=== PATIENT | male | born 1950 ===

== ENCOUNTER → 2021-03-11 | Outpatient (CLI) | payer MEDICARE, OTHER ==
[2021-03-11 13:39] LABS: HCT 44.1 % (39.0-53.0); HGB 15.4 gm/dL (13.0-17.5); MCH 31.4 pg (25.0-35.0); MCV 89.6 fL (80.0-100.0); Mean Platelet Volume 7.8; Platelet Count 203 k/uL (150-450); RBC 4.92 m/uL (4.30-5.90); RDW 13.6 % (11.5-15.5); WBC 5.8 k/uL (3.8-10.6)
[2021-03-11 13:43] LABS: INR 0.9 (<1.2); Partial Thromboplastin Time 25.5 sec (22.0-30.0); Prothrombin Time 10.2 sec (9.0-12.0)
[2021-03-11 14:05] LABS: Appearance,Urine Clear (Clear); Bilirubin,Urine Negative (Negative); Blood,Urine Negative (Negative); Color,Urine Light Yellow; Glucose,Urine (UA) Negative (Negative); Ketones,Urine Negative (Negative); Leukocyte Esterase,Urine Negative (Negative); Nitrite,Urine Negative (Negative); Protein,Urine Negative (Negative); Specific Gravity,Urine 1.008 (1.001-1.035); Urobilinogen,Urine <2.0 mg/dL (<2.0)
[2021-03-11 14:10] LABS: ALT 21 U/L (4-49); AST 25 U/L (17-59); African American GFR (CKD) >90 (>60 ml/min/1.73 sqM); Albumin 4.7 g/dL (3.5-5.0); Alkaline Phosphatase 81 U/L (38-126); Anion Gap 9 mmol/L; Blood Urea Nitrogen 14 mg/dL (9-20); Calcium 10.1 mg/dL (8.4-10.2); Carbon Dioxide 25 mmol/L (22-30); Chloride 104 mmol/L (98-107); Glucose 102 mg/dL (74-99); Non-African American GFR(CKD) >90 (>60 ml/min/1.73 sqM); Potassium 4.5 mmol/L (3.5-5.1); Sodium 138 mmol/L (137-145); Total Bilirubin 1.2 mg/dL (0.2-1.3); Total Protein 7.6 g/dL (6.3-8.2)
== END | disposition home or self-care (01) ==
LOC: LABPAT 11:33
PROVIDERS: ATTEND Orthopaedic Surgery
DX: Z01.812 Encounter for preprocedural laboratory examination (principal); Z79.01 Long term (current) use of anticoagulants
CPT/HCPCS: 36415; 80053; 81003; 85027; 85610; 85730; 87070

== ENCOUNTER 2021-03-19 07:49 | Day surgery (SDC) | payer MEDICARE, OTHER ==
[2021-03-15 09:37] VITALS: BMI 30.4
[~2021-03-19 07:49] MED LIST: ACETAMINOPHEN TAB 500 MG TAB PO PRN; DEXAMETHASONE SOD PHOSPHATE 4 MG/ML 1 ML VIAL IV ONE; GABAPENTIN 300 MG CAP PO PRN; HYDROmorphone 0.5 MG/0.5 ML SYRINGE IVP PRN; MELOXICAM 7.5 MG TAB PO PRN; MIDAZOLAM 2 MG/2 ML VIAL IV PRN; ONDANSETRON 4 MG/2 ML VIAL IVP ONE; TRANEXAMIC ACID 1,000 MG in SODIUM CHLORIDE 0.9% 100 ML IVPB PRN
[2021-03-19] MEDS: LACTATED RINGERS 1,000 ML IV SCH (08:01)
[2021-03-19] MEDS ORDERED: ONDANSETRON 4 MG/2 ML VIAL IVP PRN (08:07)
[2021-03-19] MEDS ORDERED: MAGNESIUM HYDROXIDE 2,400 MG/10 ML CUP PO PRN (08:07)
[2021-03-19] MEDS ORDERED: NALOXONE 0.4 MG/ML 1 ML VIAL IV PRN (08:07)
[2021-03-19] MEDS ORDERED: HYDROmorphone 0.5 MG/0.5 ML SYRINGE IVP PRN ×2 (08:07)
[2021-03-19] MEDS ORDERED: HYDROmorphone 0.2 MG/1 ML SYRINGE IVP PRN (08:07)
[2021-03-19] MEDS ORDERED: hydrOXYzine pamoate 25 MG CAP PO PRN (08:07)
[2021-03-19] MEDS ORDERED: HYDROcodone/APAP 7.5-325MG 1 EACH TAB PO PRN ×2 (08:09)
[2021-03-19] MEDS ORDERED: LIDOCAINE 1% (10MG/ML) FOR IV START INTRADERMA ONE (08:45)
[2021-03-19] MEDS ORDERED: ceFAZolin 1,000 MG in SODIUM CHLORIDE 0.9% 1,000 ML IRRIGATION ONE (09:09)
[2021-03-19] MEDS ORDERED: PROPOFOL 10 MG/ML 20 ML VIAL IV ONE (09:10)
[2021-03-19] MEDS ORDERED: fentaNYL (PF) 50 MCG/ML 2 ML AMP ONE (09:10)
[2021-03-19] MEDS ORDERED: TRANEXAMIC ACID 1,000 MG/10 ML VIAL ONE (09:10)
[2021-03-19] MEDS ORDERED: SODIUM CHLORIDE 0.9% IRRIG 1,000 ML BTL IRRIGATION ONE (09:10)
[2021-03-19] MEDS ORDERED: KETAMINE 10 MG/ML 20 ML VIAL ONE (09:10)
[2021-03-19] MEDS ORDERED: SODIUM CHLORIDE 0.9% 100 ML BAG ONE (09:10)
[2021-03-19] MEDS ORDERED: HEPARIN SODIUM,PORCINE 10,000 UNIT/ML 1 ML VIAL ONE (09:10)
[2021-03-19] MEDS ORDERED: MIDAZOLAM 2 MG/2 ML VIAL ONE (09:10)
[2021-03-19] MEDS: ROPIVACAINE/EPI/CLONIDINE/KET 50 ML SYRINGE MISCELLANE PRN ×2 (09:13→10:19)
--- NOTE | 2021-03-19 10:29 | P.OP ---
Date of Procedure: 03/19/21 Preoperative Diagnosis: Severe osteoarthritis left hip Postoperative Diagnosis: Severe osteoarthritis left hip Procedure(s) Performed: Left total hip arthroplasty with a direct anterior approach Implants: [employer] Polarstem standard size 6 [employer] R3, 3 hole hemispherical acetabular shell, 52 mm [employer] Reflection 6.5 mm cancellus screw, 20 mm 2 [employer] R3, XLPE 20 acetabular liner [employer] Oxinium femoral head 36 m, +0 All components were press-fit. The articulation is Oxinium on polyethylene. Anesthesia: spinal Surgeon: Marco A De Los Santos Seam Stay Stitcher #1: Kalpana Ray Estimated Blood Loss (ml): 200 (59 mL returned with Cell Saver) Pathology: other (Femoral head) Condition: stable Disposition: PACU Indications for Procedure: After failure of conservative treatment we discussed the surgical and nonsurgical treatment options at length. Patient wishes to proceed with a total hip arthroplasty with a direct anterior approach. Complications specific to this procedure were discussed at length, including but not limited to infection, leg length discrepancy, dislocation, nerve injury, and fracture. Covid-19 was also discussed at length with the patient, and they are aware of the current policies and procedures. The patient was given the option of delaying surgery, but they elect to proceed knowing these risks. Patient is aware of all these complications and informed consent was obtained Operative Findings: The operative findings are consistent with severe osteoarthritis of the left hip Description of Procedure: Patient was seen and evaluated in the preoperative area and the consent was reviewed. The operative site was marked with a skin marker. The patient was then brought to the operating room and given preoperative antibiotics intravenously. 1 g of Tranexamic acid was also given intravenously. A spinal anesthetic was administered by the anesthesia department. The patient was then placed on the Reserve table with the bony prominences well-padded. The hip area was then prepped with a ChloraPrep solution and draped in the usual sterile fashion. A universal timeout was then performed, which confirmed the patient's name, surgical site, ALLERGIES, and procedure being performed on the consent. Next the incision site was located at 1 cm distal and 2 cm lateral to the anterior superior iliac spine. The skin and subcutaneous tissues were sharply incised. Incision was carefully dissected down to the fascia overlying the tensor fascia ganesh muscle. This fascia was then incised in line with the incision. Care was taken to stay laterally in order to avoid injuring the lateral femoral cutaneous nerve. Next, using blunt finger dissection, the tensor fascia ganesh muscle was dissected off its investing fascia. The muscle was then carefully retracted laterally with a cobra retractor over the lateral neck of the femur. Next, the circumflex vessels were identified and cauterized using the AquaMantis device. The anterior hip capsule was then exposed. The capsule was then opened and an inverted T fashion. Cobra retractors were then placed intracapsularly. The retractors were maintained intracapsular throughout the procedure. The proximal femur was then visualized. A small amount of traction was placed on the leg. The femoral neck was then osteotomized appropriate level above the lesser trochanter. A small wedge of bone was then removed from the remaining femoral head. Next, using a corkscrew the femoral head was removed from the acetabulum. On gross visual inspection, the femoral head had complete loss of articular cartilage and multiple periarticular osteophytes. The femoral head was then measured. Attention was then turned to the acetabulum. The acetabulum was exposed and any remaining labrum was excised. Sequential reaming of the acetabulum was performed using fluoroscopic guidance until there was a good bed of bleeding cancellus bone. When the appropriate size was reached, a trial was then placed. The position and fit of the trial was checked with fluoroscopy. The trial was then removed. Then, using fluoroscopic guidance, the final implant was impacted at 20 of anteversion and 40 of abduction, and fully seated in the acetabulum. 2 screws were then placed in the acetabulum. Again fluoroscopy was used to check position of the screws. Next, the liner was then impacted, with a 20 elevated liner located in the anterior superior quadrant. Component locking was confirmed. Attention was then directed to the femur. With the aid of the Reserve table, the femur was externally rotated to approximately 130, extended, and adducted under the opposite leg. A side hook was then placed under the proximal femur, and the side hook elevator was used to elevate the proximal femur while releasing the capsule. Retractors were then placed. A capsular release was performed, as well as a release of the conjoined tendon, which afforded excellent visualization of the proximal femur. Next, a box osteotome was used to lateralize the proximal femur. A railroad hand was then used to locate the femoral canal. Sequential broaching was then performed with appropriate size which afforded excellent fixation in the proximal femur. A trial was then placed with appropriate head and neck, and the hip was gently reduced with the aid of the Reserve table. Fluoroscopy was then used to check position of the components, as well as to ensure equal leg lengths. The hip was then gently dislocated and the trials were then removed. Final implants were then impacted and the hip was again reduced. Final fluoroscopic x-rays confirmed that the components were in anatomic position, as well as equal leg lengths. The hip was also taken through range of motion, and found to be stable. The hip was then copiously irrigated with antibiotic solution with pulsatile lavage. The hip was then irrigated with Irrisept solution. The soft tissues were then injected with a ropivacaine solution, which consisted of 246.25 mg of ropivacaine, 0.5 mg of epinephrine, 30 mg of Toradol, 80 g of clonidine, and 48.45 mL of sterile water, for a total of 100 mL of fluid injected. A second dose of 1 g of Tranexamic acid was also given intravenously. Any blood collected by Cell Saver was then returned to the patient at this time. The fascia was then closed with 2-0 strata fix suture. The subcutaneous tissue was closed with 3-0 Vicryl. The subcuticular tissue was closed with 3-0 strata fix suture. The skin was then closed with Exofin skin glue. After the glue and dried, and Optifoam silver impregnated dressing was applied. The patient was then transferred to the recovery room in stable condition. The account assistant SOLA Barrett was required due to the complexity of surgery, and the need for skilled medical surgical tech for positioning, draping, exposure, retraction, and closure of the wound.
--- NOTE | 2021-03-19 10:49 | FL ---
EXAMINATION TYPE: FL guidance operating room, XR Hip Limited LT DATE OF EXAM: 03/19/2021 CLINICAL HISTORY: Left hip pain and osteoarthritis. TECHNIQUE: Fluoroscopy. COMPARISON: None. FINDINGS: Fluoroscopic guidance was provided during right hip replacement procedure performed by Dr. De Los Santos. A total of 23 seconds of fluoroscopic time was utilized during the procedure and two spot images was acquired. Intraoperative Images acquired show metallic hardware from left hip arthroplast y satisfactory on frontal projection. IMPRESSION: As Above.
[2021-03-19] MEDS ORDERED: diphenhydrAMINE 50 MG/ML 1 ML VIAL ONE (11:21)
[2021-03-19] MEDS ORDERED: diphenhydrAMINE 50 MG/ML 1 ML VIAL IVP ONE (11:28)
--- NOTE | 2021-03-19 11:28 | XR ---
Limited left hip HISTORY: Status post left hip arthroplasty Single frontal view of the left hip Patient is status post left hip arthroplasty. There is anatomic alignment. Lucency is present within the soft tissues. No evident fracture. IMPRESSION: Orthopedic follow-up.
[2021-03-19] MEDS: ASPIRIN 325 MG TAB PO SCH ×2 (15:36→20:09)
[2021-03-19] MEDS: SODIUM CHLORIDE 0.9% 1,000 ML IV SCH (20:17)
--- NOTE | 2021-03-19 20:26 | P.CONS ---
History of Present Illness - Reason for Consult Consult date: 03/19/21 Medical management Requesting physician: Marco A De Los Santos - Chief Complaint Left hip pain - History of Present Illness This is a very pleasant 71-year-old patient who follows with Dr. Roger. Patient has osteoarthritis in several joints. Left hip included. Patient progressively was having resting pain. Pain was worse with activity. Better with rest. Conservative measurements were tried. Failed. Decided proceed for surgery. Pain was pretty much limited to the left hip. Postprocedure patient's pain is controlled. Slight local numbness. No nausea vomiting. No chest pain or shortness breath. 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 Male pattern baldness EYES: Pupils equal. Conjunctiva normal. HEENT: External appearance of nose and ears normal, oral cavity grossly normal. NECK: JVD not raised; masses not palpable. HEART: First and second heart sounds are normal; no edema. LUNGS: Respiratory rate normal; clear to auscultation. ABDOMEN: Soft, nontender, liver spleen not palpable, no masses palpable. MUSCULAR skeletal: Dressing over the incision site on the left hip. Evidence of OA no other joints. PSYCH: Alert and oriented x3; mood and affect normal. NEUROLOGICAL: Cranial nerves grossly intact; no facial asymmetry, power and sensation grossly intact. LYMPHATICS: No lymph nodes palpable in the axilla and neck INVESTIGATIONS, reviewed in the clinical context: [Labs from 03/11/2021]: WBC 5.8 hemoglobin 15.4 platelets 203 sodium 138 potassium 4.5 crit 0.75 UA negative Coronavirus [PCR]: Not detected [from today Assessment and plan: -Left total hip arthroplasty, anterior approach Aspirin 325 by mouth twice a day for DVT prophylaxis. Received IV Ancef for prophylaxis. Decadron. Pain control in place. -Primary osteoarthritis other joints bilaterally including both the knees Pain control as needed -Male pattern baldness Care was discussed with the patient. Questions answered. Aspirin for DT prophylaxis. Pain control in place. Activity as per orthopedics and tolerated. Questions answered. Thank you Dr. De Los Santos Past Medical History Past Medical History: Cancer Additional Past Medical History / Comment(s): skin cancer-melanoma History of Any Multi-Drug Resistant Organisms: None Reported Past Surgical History: Hernia Repair, Tonsillectomy Additional Past Surgical History / Comment(s): surgery to remove melanoma. lt meniscus surgery Past Anesthesia/Blood Transfusion Reactions: No Reported Reaction Past Psychological History: No Psychological Hx Reported Smoking Status: Never smoker Past Alcohol Use History: None Reported Past Drug Use History: None Reported - Past Family History Father Family Medical History: Cancer Additional Family Medical History / Comment(s): lung cancer Mother Family Medical History: Cancer Additional Family Medical History / Comment(s): skin cancer Medications and Allergies Home Medications Medication Instructions Recorded Confirmed Type Aspirin 325 mg PO BID #60 tab 03/19/21 Rx HYDROcodone/APAP 7.5-325MG [[place] 1 - 2 tab PO Q6H PRN #32 tab 03/19/21 Rx 7.5-325] Ondansetron Odt [Zofran Odt] 1 tab PO Q8HR PRN #10 tab 03/19/21 Rx Sennosides [Senokot] 2 tab PO DAILY PRN #60 tablet 03/19/21 Rx Allergies Allergy/AdvReac Type Severity Reaction Status Date / Time No Known Allergies Allergy Verified 03/19/21 08:14 Physical Exam Vitals: Vital Signs Temp Pulse Pulse Pulse Resp BP BP 03/19/21 20:00 98.6 F 66 14 148/79 03/19/21 14:13 97.5 F L 64 18 131/75 03/19/21 13:45 97 16 143/73 03/19/21 13:15 89 16 125/68 03/19/21 12:45 88 16 130/65 03/19/21 12:15 85 16 138/67 03/19/21 12:00 97 16 139/70 03/19/21 11:45 81 16 133/63 03/19/21 11:30 95 16 133/65 03/19/21 11:13 85 16 121/64 03/19/21 10:58 87 16 124/57 03/19/21 10:43 98.3 F 86 14 125/58 03/19/21 08:18 98.2 F 63 18 156/74 Pulse Ox 03/19/21 20:00 96 03/19/21 14:13 96 03/19/21 13:45 95 03/19/21 13:15 97 03/19/21 12:45 96 03/19/21 12:15 97 03/19/21 12:00 97 03/19/21 11:45 98 03/19/21 11:30 99 03/19/21 11:13 99 03/19/21 10:58 98 03/19/21 10:43 94 L 03/19/21 08:18 98 Intake and Output 03/19/21 03/19/21 03/19/21 06:59 14:59 22:59 Intake Total 1551 Output Total 200 200 Balance 1351 -200 Intake: IV 1551 Output: Urine 200 Estimated Blood Loss 200 Other: Weight 89.2 kg 89.2 kg
[2021-03-19] MEDS ORDERED: SENNOSIDES-DOCUSATE SODIUM 1 EACH TAB PO SCH (21:00)
[2021-03-20] MEDS: SODIUM CHLORIDE 0.9% 1,000 ML IV SCH (00:12)
[2021-03-20 04:31] VITALS: TEMP 97.8
[2021-03-20] MEDS: ASPIRIN 325 MG TAB PO SCH (07:19)
[2021-03-20] MEDS: LACTATED RINGERS 1,000 ML IV SCH (07:23)
[2021-03-20 07:56] VITALS: BP 133/77; PULSE 74; RESP 18
[2021-03-20 09:31] LABS: Basophils # (A) 0.02 X 10*3/uL (0.00-0.10); Basophils % (A) 0.2 %; Eosinophils # (A) 0.03 X 10*3/uL (0.04-0.35); Eosinophils % (A) 0.3 %; HGB 12.3 g/dL (13.0-17.0); Lymphocytes % (A) 14.9 %; MCH 29.9 pg (27.0-32.0); MCHC 33.2 g/dL (32.0-37.0); Mean Platelet Volume 10.9 fL (9.5-12.2); Monocytes # (A) 1.08 X 10*3/uL (0.20-1.00); Monocytes % (A) 10.7 %; Neutrophils # (A) 7.44 X 10*3/uL (1.80-7.70); Neutrophils % (A) 73.7 %; Platelet Count 182 X 10*3/uL (140-440); RBC 4.11 X 10*6/uL (4.40-5.60); RDW 13.3 % (11.5-14.5); WBC 10.09 X 10*3/uL (4.50-10.00)
--- NOTE | 2021-03-20 11:25 | P.DS ---
Providers Expected date of discharge: 03/20/21 Attending physician: Marco A De Los Santos Consults: 03/19/21 08:07 Consult Physician Routine Consulting Provider: Jesus Quinones Consult Reason/Comments: medical management Do you want consulting provider notified?: Yes Primary care physician: Robert Mcintyreeldor - Discharge Diagnosis(es) (1) Osteoarthritis of left hip Current Visit: Yes Status: Acute (2) S/P total left hip arthroplasty Current Visit: Yes Status: Acute Hospital Course: This is a 71-year-old male with known history of degenerative arthritis of the left hip. The patient presents for evaluation. After discussion and consideration patient elects to proceed with total hip arthroplasty with direct anterior approach. The patient is seen preoperatively by his primary care physician and cleared for surgery. Patient is admitted to [facility] on 03/19/2021 for total hip arthroplasty with direct anterior approach. The procedures performed without complication or sequelae. The patient is doing well postoperatively. Labs and vital signs are stable on day of discharge. On day of discharge patient's hip incision is healing well. There is minimal erythema. There is no drainage noted at this time. There is minimal soft tissue swelling to the hip and thigh. Patient has full foot and ankle motion without difficulty or pain. Neurovascular status to the left lower extremity is intact. Patient is discharged to home in good condition. Please see med rec for accurate list of home medications. Patient Condition at Discharge: Good Plan - Discharge Summary Discharge Rx Participant: No New Discharge Prescriptions: New Aspirin 325 mg PO BID #60 tab HYDROcodone/APAP 7.5-325MG [[place] 7.5-325] 1 - 2 tab PO Q6H PRN #32 tab PRN Reason: Pain Ondansetron Odt [Zofran Odt] 1 tab PO Q8HR PRN #10 tab PRN Reason: Nausea Ferrous Sulfate [Feosol] 325 mg PO DAILY #30 tab Sennosides [Senokot] 2 tab PO DAILY PRN #60 tablet PRN Reason: Constipation Discharge Medication List Aspirin 325 mg PO BID #60 tab 03/19/21 [Rx] HYDROcodone/APAP 7.5-325MG [[place] 7.5-325] 1 - 2 tab PO Q6H PRN #32 tab 03/19/21 [Rx] Ondansetron Odt [Zofran Odt] 1 tab PO Q8HR PRN #10 tab 03/19/21 [Rx] Sennosides [Senokot] 2 tab PO DAILY PRN #60 tablet 03/19/21 [Rx] Ferrous Sulfate [Feosol] 325 mg PO DAILY #30 tab 03/20/21 [Rx] Follow up Appointment(s)/Referral(s): Robert Roger DO [Primary Care Provider] - 1 Week [facility], [NON-STAFF] - ([facility] will call you to schedule your home physical therapy visits. ) Marco A De Los Santos DO [Doctor of Osteopathic Medicine] - 2 Weeks Activity/Diet/Wound Care/Special Instructions: Weightbearing as tolerated with walker. Leave dressing intact. Dressing may be removed by home care nurse or by patient in 7 days. Then change dressing twice daily until follow up. May shower with initial dressing intact and after removal. If dressing become saturated, please remove. Please take aspirin 325mg twice daily for 30 days to prevent blood clots. Recommend use of compression stockings daily until follow up to help prevent swelling and blood clots. May remove at night before sleeping. Please follow-up with [facility] in 2 weeks and call with any questions or concerns, . Discharge Disposition: HOME WITH HOME HEALTH SERVICES
--- NOTE | 2021-03-20 13:43 | P.PN ---
Progress Note - Text Progress Note Date: 03/20/21 - Chief Complaint Left hip pain This is a very pleasant 71-year-old patient who follows with Dr. Roger. Patient has osteoarthritis in several joints. Left hip included. Patient progressively was having resting pain. Pain was worse with activity. Better with rest. Conservative measurements were tried. Failed. Decided proceed for surgery. Pain was pretty much limited to the left hip. Postprocedure patient's pain is controlled. Slight local numbness. No nausea vomiting. No chest pain or shortness breath. March 20: Using a walker to get about. Pain control. Did get [place]. Oral intake good. Hemoglobin has dropped. Iron supplement to be taken for one month. Discussed with the patient. To follow-up with his family doctor. Review of systems: Was done for constitutional, cardiovascular, GI, pulmonary. 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 Conjunctiva normal. NECK: JVD not raised; masses not palpable. HEART: First and second heart sounds are normal; no edema. LUNGS: Respiratory rate normal; clear to auscultation. ABDOMEN: Soft, nontender, liver spleen not palpable, no masses palpable. MUSCULAR skeletal: Dressing over the incision site on the left hip. Evidence of OA no other joints. PSYCH: Alert and oriented x3; mood and affect normal. INVESTIGATIONS, reviewed in the clinical context: March 20: White count 10.0 hemoglobin 12.3 platelets 182 [Labs from 03/11/2021]: WBC 5.8 hemoglobin 15.4 platelets 203 sodium 138 potassium 4.5 crit 0.75 UA negative Coronavirus [PCR]: Not detected [from today Assessment and plan: -Left total hip arthroplasty, anterior approach Aspirin 325 by mouth twice a day for DVT prophylaxis. Received IV Ancef for prophylaxis. Decadron. Pain control in place. -Primary osteoarthritis other joints bilaterally including both the knees Pain control as needed -Male pattern baldness -Acute postprocedure blood loss anemia. As expected from surgery. Ferrous sulfate 325 mg by mouth daily for 30 days. -Leukocytosis, reactive from surgery. No clinical evidence of infection Care was discussed with the patient. Iron supplement. Follow up with Dr. Roger in a week.. Thank you Dr. De Los Santos
== END 2021-03-20 12:24 | disposition home health service (06) ==
LOC: OR 07:49 → 4SSUR 10:42 → OR 03-20 12:24
PROVIDERS: ATTEND Orthopaedic Surgery
DX: M16.12 Unilateral primary osteoarthritis, left hip (principal); D50.0 Iron deficiency anemia secondary to blood loss (chronic); D72.829 Elevated white blood cell count, unspecified; G89.18 Other acute postprocedural pain; Z79.82 Long term (current) use of aspirin; Z79.899 Other long term (current) drug therapy; Z80.1 Family history of malignant neoplasm of trachea, bronchus and lung; Z85.828 Personal history of other malignant neoplasm of skin; Z20.822 Contact with and (suspected) exposure to COVID-19
CPT/HCPCS: 27130; 97161; 86891; 85025; 87635; 73501; C1776; J1200; J1100; J0690 ×3; J2405; 86850; 86900; 86901; 88305; 88311